=== PATIENT | female | born 1995 | race Hispanic/Latino ===

== ENCOUNTER 2016-04-12 02:36 | Emergency (ER) | payer MEDICAID, OTHER ==
[~2016-04-12] VITALS: Ht 152.4 cm; Wt 50.0 kg
[~2016-04-12 02:36] MED LIST: PRENATAL VIT
[2016-04-12 02:40] VITALS: BP 134/72; PULSE 117; RESP 18; O2SAT 99
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
[2016-04-12 04:30] VITALS: BP 134/72; PULSE 117; RESP 18; O2SAT 99
== END 2016-04-12 04:31 | disposition home or self-care (01) ==
LOC: SED 02:36
DX: F43.0 Acute stress reaction (principal); F10.120 Alcohol abuse with intoxication, uncomplicated

== ENCOUNTER 2016-04-13 01:10 | Emergency (ER) | payer OTHER ==
[~2016-04-13] VITALS: Ht 152.4 cm; Wt 52.3 kg
[2016-04-13 01:56] VITALS: BP 110/73; PULSE 74; RESP 16; O2SAT 100
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
[2016-04-13 07:25] VITALS: BP 98/42; PULSE 72; RESP 12; O2SAT 100
[2016-04-13 11:29] VITALS: BP 106/54; PULSE 69; RESP 12; O2SAT 100
== END 2016-04-13 11:30 | disposition home or self-care (01) ==
LOC: SED 01:10
DX: R45.851 Suicidal ideations (principal); F33.9 Major depressive disorder, recurrent, unspecified; F43.0 Acute stress reaction

== ENCOUNTER 2016-07-23 10:35 | Emergency (ER) | payer OTHER ==
[~2016-07-23] VITALS: Ht 152.4 cm; Wt 54.1 kg
[2016-07-23 10:37] VITALS: BP 131/90; PULSE 76; RESP 18; O2SAT 100
[2016-07-23] MEDS ORDERED: Lidocaine-Epi-Tetracaine Solution 3 mL Syringe TOPICAL ONE ×2 (10:50)
[2016-07-23] MEDS ORDERED: Bacitracin Ointment Packet TOPICAL ONE (10:50)
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
[2016-07-23] MEDS ORDERED: ETON68IM3 SQ (10:55)
[2016-07-23 11:23] LABS: BASOPHILS % (AUTO) 0.2 % (0-3); EOSINOPHILS % (AUTO) 0.5 % (0-5); MONOCYTES % (AUTO) 4.6 % (4-12); Mean Corpuscular Hemoglobin 30.2 pg (27.0-35.0); Mean Corpuscular Volume 90.3 fL (81-100); NEUTROPHILS % (AUTO) 85.2 % (40-74); Platelet Count 296 bil/L (150-400)
[2016-07-23] MEDS ORDERED: HYDROcodone-APAP 5-325 mg Tablet PO ONE ×2 (12:50→14:45)
--- NOTE | 2016-07-23 13:28 | DRSVH ---
PROCEDURE: CT BRAIN WITHOUT CONTRAST ([id number]) INDICATIONS: TRAUMA, lim TECHNIQUE: Noncontrast 4.5 mm thick angled axial sections acquired from the foramen magnum to the vertex, with c oronal reformats. COMPARISON: None. FINDINGS: Image quality: Excellent. CSF spaces: Basal cisterns are patent. No extra-axial fluid collections. Ventricles are normal in size and shape. Brain: No midline shift. No intracranial masses or hemorrhage. Dominguez-white matter interface is norm al. Skull and face: Calvarium and visualized facial bones are intact, without suspicious lesions. Sinuses: Visualized sinuses and mastoids are clear. IMPRESSION: No acute intracranial process. Dictated by: Joseph Gallardo M.D. on 07/23/2016 at 13:25 Approved by: Joseph Gallardo M.D. on 07/23/2016 at 13:26
--- NOTE | 2016-07-23 13:30 | DRSVH ---
PROCEDURE: CT CERVICAL SPINE WITHOUT CONTRAST ([id number]) INDICATIONS: TRAUMA, NECK PAIN TECHNIQUE: Noncontrast 3 mm thick sections acquired from the skull base to the T4 level. Sagittal and coronal r eformats were then constructed. For radiation dose reduction, the following was used: automated exp osure control, adjustment of mA and/or kV according to patient size. COMPARISON: None. FINDINGS: Image quality: Excellent. Bones: No fractures or dislocations. Visualized superior ribs are intact. Soft tissues: Prevertebral soft tissues are normal in thickness. No paravertebral hematomas. No ap ical pneumothoraces. IMPRESSION: No fracture. Dictated by: Joseph Gallardo M.D. on 07/23/2016 at 13:27 Approved by: Joseph Gallardo M.D. on 07/23/2016 at 13:28
[2016-07-23] MEDS ORDERED: HYDR-4003 PO (14:48)
[2016-07-23 16:04] VITALS: BP 121/72; PULSE 70; O2SAT 100
== END 2016-07-23 16:04 | disposition home or self-care (01) ==
LOC: SED 10:35
DX: S09.8XXA Other specified injuries of head, initial encounter (principal); S01.01XA Laceration without foreign body of scalp, initial encounter; S01.81XA Laceration without foreign body of other part of head, initial encounter; V48.1XXA Car passenger injured in noncollision transport accident in nontraffic accident, initial encounter; Y93.39 Activity, other involving climbing, rappelling and jumping off; Y92.410 Unspecified street and highway as the place of occurrence of the external cause; Y99.8 Other external cause status

== ENCOUNTER 2016-07-28 13:21 | Emergency (ER) | payer OTHER ==
[~2016-07-28 13:21] MED LIST changes: +ETON68IM3 SQ; +HYDR-4003 PO; -PRENATAL VIT
[2016-07-28 13:33] VITALS: BP 112/84; PULSE 72; RESP 14; O2SAT 99
[2016-07-28 14:15] VITALS: BP 112/84; PULSE 72; RESP 14; O2SAT 99
== END 2016-07-28 13:40 | disposition home or self-care (01) ==
LOC: SED 13:33
DX: Z48.02 Encounter for removal of sutures (principal)